=== PATIENT | male | born 1985 | race African-American/Black ===

== ENCOUNTER → 2020-06-07 | Outpatient (CLI) | payer BC ==
[~2020-06-07] MED LIST: FLEXERIL PO; HUMALOG100 UNIT/1 SQ; IBUPROFEN 800800 M1 PO; IBUPROFEN 800800 MG PO; LANTUS SC; LIDOCAINE VISC100 M1 MM; NAPROSYN500 MG PO; SERTRALINE HCL25 MG PO; TRAMADOL 50 MG50 MG PO; VICODIN 5-5001 EACH PO
== END ==
LOC: M.ULTRA 05-27 15:52
PROVIDERS: ATTEND Family Medicine
DX: R22.2 Localized swelling, mass and lump, trunk (principal)

== ENCOUNTER 2021-06-16 15:33 | Emergency (ER) | payer OTHER, BC ==
[~2021-06-16] VITALS: Ht 175.3 cm; Wt 78.9 kg
[2021-06-16 15:48] VITALS: BP 140/97
[2021-06-16] MEDS ORDERED: INSULIN AS100 UNIT/3 (15:51)
[2021-06-16] MEDS ORDERED: NAPROSYN500 MG PO (16:35)
[2021-06-16] MEDS ORDERED: APAP W/CODEINE1 TA2 PO (16:35)
== END 2021-06-16 17:10 | disposition home or self-care (01) ==
LOC: M.ERS 15:33
DX: M25.532 Pain in left wrist (principal); Z79.4 Long term (current) use of insulin; Z87.891 Personal history of nicotine dependence; Z91.013 Allergy to seafood; V89.2XXA Person injured in unspecified motor-vehicle accident, traffic, initial encounter; Y93.89 Activity, other specified; Y92.89 Other specified places as the place of occurrence of the external cause; Y99.8 Other external cause status